=== PATIENT | female | born 1940 | race Caucasian/White ===

== ENCOUNTER 2016-12-26 11:26 | Inpatient (IN) ==
[2016-12-26] MEDS ORDERED: NS 500 ML IV ONE (11:27)
--- NOTE | 2016-12-26 11:59 | Diag Imaging Result Doc PS360 ---
EXAM: CHEST-PORTABLE INDICATION: dizzy TECHNIQUE: One view COMPARISON: 12/25/2016 FINDINGS: The lungs are hyperinflated, stable. Stable minimal linear scarring at the left lung base is unchanged. No new consolidations are appreciated. Cardiac silhouette is stable. IMPRESSION: Stable chest. Electronically signed by Kit Davis 12/26/2016 11:57 AM
--- NOTE | 2016-12-26 12:13 | EKG Report ---
Test Performed on : 12/26/2016 11:45:25 AM Test Reason : Chest Pain Blood Pressure : / mmHG Vent. Rate : 060 BPM Atrial Rate : 064 BPM P-R Int : 168 ms QRS Dur : 186 ms QT Int : 518 ms P-R-T Axes : 000 -71 075 degrees QTc Int : 518 ms AV dual-paced rhythm Abnormal ECG When compared with ECG of 03-APR-2016 06:06, No significant change was found Unconfirmed Result
[2016-12-26 12:21] LABS: MANUAL DIFF NEEDED? NO
[2016-12-26 12:24] LABS: BASO% 0.2 % (0.0-0.8); EOS# 0.13 X1000 (0.0-0.7); HEMATOCRIT 37.6 % (37.0-47.0); HEMOGLOBIN 12.2 g/dL (12.0-16.0); LYMPH# 0.93 X1000 (1.2-3.4); LYMPH% 21.3 % (20.5-51.1); MCHC 32.4 g/dL (33-37); MCV 95.7 FL (81-99); MONO# 0.26 X1000 (0.11-0.59); MPV 10.1 FL (7.4-10.4); NEUT% 69.5 % (42.2-75.2); PLT 150 X1000 (130-400); RBC 3.93 XMIL (4.2-5.4)
[2016-12-26 12:34] LABS: INR 1.04; PTT 26.1 Seconds (22.0-36.0)
[2016-12-26 12:44] LABS: ALBUMIN 3.9 g/dL (3.5-5.0); CALCIUM 9.3 mg/dL (8.8-10.2); MAGNESIUM 2.1 mg/dL (1.5-2.7); POTASSIUM 3.9 mmol/L (3.5-5.1); TOTAL BILIRUBIN 0.84 mg/dL (0.20-1.00); TOTAL PROTEIN 6.3 g/dL (6.3-8.3)
[2016-12-26 12:54] LABS: URINE MICRO REVIEW NEEDED? NO; URINE SOURCE CLEAN CATCH
[2016-12-26 12:57] LABS: BILIRUBIN URINE NEGATIVE (NEGATIVE); BLOOD URINE NEGATIVE (NEGATIVE); COLOR YELLOW; GLUCOSE URINE NEGATIVE (NEGATIVE); LEUKOCYTES URINE TRACE (NEGATIVE); NITRITE URINE NEGATIVE (NEGATIVE); PROTEIN URINE NEGATIVE (NEGATIVE); SP GRAVITY URINE 1.012; TURBIDITY URINE CLEAR (CLEAR); UROBILINOGEN URINE NORMAL (NORMAL)
[2016-12-26 12:58] LABS: UR EPITHELIAL CELLS <10 /HPF (<10); URINE BACTERIA NEGATIVE /HPF; URINE CULTURE NEEDED? YES; URINE RBC <10 /HPF (<10); URINE WBC <10 /HPF (<10)
--- NOTE | 2016-12-26 13:58 | Diag Imaging Result Doc PS360 ---
EXAM: ANGIOGRAM/PULMONARY ARTERIES INDICATION: presyncope elevated ddimer COMPARISON: 09/18/2011 FINDINGS: There is a filling defect involving second and higher order branches of the left pulmonary artery leading to the left lower lobe. This is consistent with acute pulmonary embolism. Clot burden is moderate. There is a focal density at the posterior lateral left lung base that is vaguely wedge-shaped. Although it is possible that this is simply atelectasis, it is certainly concerning for pulmonary infarct. There is only minimal dependent atelectasis on the right. There are no pleural fluid collections and no pneumothorax. The heart is enlarged. There is no evidence of significant lymphadenopathy. IMPRESSION: 1.Acute pulmonary embolism involving branches of the left pulmonary artery leading to the left lung base with a moderate clot burden. 2.Focal opacity at the left lung base concerning for pulmonary infarct. 3.Cardiomegaly. The findings were discussed with Darryn Olvera MD at 12/26/2016 1:54 PM. Electronically signed by Kit Davis 12/26/2016 1:56 PM
[2016-12-26] MEDS ORDERED: LOVENOX 1 MG/KG SUBQ ONE (14:08)
--- NOTE | 2016-12-26 14:20 | PROVIDER DOCUMENTATION ---
This chart was entered by Sofia Gao Scribe, acting as scribe for Darryn Olvera MD. HPI-Syncope/Dizziness - General Chief Complaint: Dizziness Stated Complaint: Near Syncope Time Seen by Provider: 12/26/16 11:28 Source: patient, EMS Allergies/Adverse Reactions: Patient Allergies Allergy/AdvReac Type Severity Reaction Status Date / Time Penicillins Allergy Intermediate RASH Verified 12/26/16 12:23 Home Medications: Home Medication List Medication Instructions Recorded Confirmed Last Taken Type Gabapentin Enacarbil 300 mg PO HS 12/26/12 12/26/16 12/25/16 20:00 History Isosorbide Mononitrate [Isosorbide 60 mg PO DAILY 12/26/12 12/26/16 04/02/16 History Mononitrate ER] Potassium Chloride [Klor-Con M10] 10 meq PO TID 12/26/12 12/26/16 12/25/16 12: 00 History Montelukast Sodium 10 mg PO DAILY 07/31/13 12/26/16 04/02/16 History Losartan/Hctz [Hyzaar 50/12.5 mg] 1 each PO DAILY #0 tablet 08/03/13 12/26/16 12:00 Rx Meloxicam [Mobic] 7.5 mg PO PRN PRN 04/02/16 12/26/16 Unknown History Memantine HCl [Namenda Xr] 28 mg PO DAILY 04/02/16 12/26/16 12/25/16 20:00 History Omeprazole [Prilosec] 20 mg PO DAILY@0700 04/02/16 12/26/16 12/25/16 20:00 History Ropinirole [Requip] 1 mg PO QHS 04/02/16 12/26/16 12/25/16 20:00 History Rosuvastatin Calcium [Crestor] 10 mg PO QPM 04/02/16 12/26/16 12/25/16 20:00 History Linaclotide [Linzess] 145 mcg PO DAILY #0 04/05/16 12/26/16 Unknown Rx Sertraline [Zoloft] 200 mg PO DAILY #0 tablet 04/05/16 12/26/16 12/25/16 20:00 Rx - History of Present Illness-Syncope/Dizzy Nature of Presenting Problem: 76 y/o F presents to ED cc of dizziness/ lightheadedness. Pt was brought in ED per EMS. Pt has history of these episodes. When this episode onset today pt was at [facility] and was sitting down when she became light headed. On EMS arrival to scene pt bp is 89/47. On arrival to ED pt bp was 121/57 after having some fluids. Pt denies having breakfast this am and on exam asked for some food. Pt denies any CP/SOB/N/V/D. Pt is alert and oriented x 3. Prior Episodes: reports: recent history Onset/Duration: reports: just prior to arrival Timing: reports: still present Symptoms prior to episode: reports: lightheaded. denies: headache, nausea/ vomiting, chest pain, racing heart, abdominal pain, back pain, confusion, diaphoresis, injury, recent head trauma, rapid heart beat Context: reports: felt faint, almost passed out. denies: lost consciousness, became unresponsive, collapsed, confused after event, incontinent of urine, incontinent of stool, breathing shallow, breathing stopped, lost pulse, seizure activity observed, low blood sugar Loss of Consciousness: no loss of consciousness Location of injury. (If syncope resulted in an injury.): reports: none Current Symptoms: reports: lightheaded, dizzy. denies: fever, chest pain, short of breath, abdominal pain, vomiting, shoulder pain, weakness, weak pulse, headache, blurred vision Similar symptoms previously: reports: workup for same problem Recently Seen Here or By Another Healthcare Provider: Yes - Dizziness Severity in ED: reports: mild Dizziness Related Current/Associated Symptoms: reports: lightheaded, dizzy. denies: weakness, weak pulse, unable to sit up, chronic dizziness Any recent trauma/injury?: reports: none Modifying Factors: improves with: nothing Patient usually:: reports: walks without assistance Review of Systems - Adult - REVIEW OF SYSTEMS - ADULT Constitutional: denies: chills, fever Eyes: denies: blurred vision, double vision Ears, Nose, Mouth & Throat: denies: ear pain, throat pain Cardiovascular: denies: chest pain, palpitations Respiratory: denies: cough, shortness of breath Gastrointestinal: denies: abdominal pain, diarrhea, nausea, vomiting Genitourinary: denies: dysuria, discharge, hematuria, hesitency Neurological: reports: dizziness/vertigo. denies: headache/migraines, seizure, slurred speech, syncope, tremors Psychiatric: denies: panic attacks, suicidal thoughts Endocrine: denies: change in skin pigment, excessive sweating Hematologic/Lymphatic: denies: blood clots, easy bruising Past History - Adult - PAST MEDICAL HISTORY-ADULT Review of Records: reports: Old Records Reviewed, Nursing Assessment Review Cardiovascular: reports: HTN, hyperlipidemia Respiratory: reports: COPD Gastrointestinal: reports: GERD Psychiatric: reports: depression - PRIOR SURGERIES/PROCEDURES Surgical/Procedure History: reports: cholecystectomy, hysterectomy, orthopedic ( extremity) - IMMUNIZATION STATUS Childhood Immunizations: See Nurse Assessment Flu Vaccine: See Nurse Assessment - FAMILY HISTORY Family History: reviewed, not pertinent - SOCIAL HISTORY Smoking: denies, non-smoker Substance Use: none/never, denies Physical Exam-General - PHYSICAL EXAM-ADULT Initial Vital Signs Reviewed: Yes - CONSTITUTIONAL General Appearance: appears well, alert, no apparent distress - EYES Eyes: pink conjunctivae - HEAD, EARS, NOSE, MOUTH & THROAT HENMT: moist mucous membranes, normal ENT inspection - NECK Neck: non-tender - RESPIRATORY Respiratory: chest non-tender, lungs clear, normal breath sounds - CARDIOVASCULAR Cardiovascular: normal peripheral pulses, regular rate, rhythm, no edema - GASTROINTESTINAL (ABDOMEN) Abdominal Exam: normal bowel sounds, non tender, soft - MUSCULOSKELETAL Back Exam: normal inspection, no CVA tenderness, no vertebral tenderness Extremity: normal range of motion, non-tender, normal gait - SKIN Integumentary: normal color, normal turgor, warm/dry - NEUROLOGIC Neurologic: grossly normal, no motor/sensory deficits - PSYCHIATRIC Psych/Mental Status: oriented x 3 Progress - PLAN OF CARE/RESULTS Progress/Plan/Lab Results: Vital Signs - 8 hr 12/26/16 11:28 12/26/16 12:25 12/26/16 12:33 Temperature 98.3 F Pulse Rate 64 60 Pulse Rate [Sitting] 61 Pulse Rate [Standing] 61 Pulse Rate [Supine] 60 Respiratory Rate 17 20 Blood Pressure 115/71 116/69 Blood Pressure [Sitting] 117/65 Blood Pressure [Standing] 129/67 Blood Pressure [Supine] 100/62 O2 Sat by Pulse Oximetry 94 L 97 12/26/16 13:59 Temperature Pulse Rate 60 Pulse Rate [Sitting] Pulse Rate [Standing] Pulse Rate [Supine] Respiratory Rate 17 Blood Pressure 114/72 Blood Pressure [Sitting] Blood Pressure [Standing] Blood Pressure [Supine] O2 Sat by Pulse Oximetry 98 Laboratory Results - last 24 hr 12/26/16 12/26/16 12/26/16 12:00 12:00 12:00 WBC 4.36 L RBC 3.93 L Hgb 12.2 Hct 37.6 MCV 95.7 MCH 31.0 MCHC 32.4 L RDW Std Deviation 13.0 Plt Count 150 MPV 10.1 Neut % (Auto) 69.5 Lymph % (Auto) 21.3 [place] % (Auto) 6.0 Eos % (Auto) 3.0 Baso % (Auto) 0.2 Neut # (Auto) 3.03 Lymph # (Auto) 0.93 L [place] # (Auto) 0.26 Eos # (Auto) 0.13 Baso # (Auto) 0.01 PT INR PTT (Actin FS) D-Dimer 2.26 H Sodium 143 Potassium 3.9 Chloride 102 Carbon Dioxide 27 Anion Gap 14 BUN 17 Creatinine 1.1 H Estimated GFR/1.73 m2 48 BUN/Creatinine Ratio 15 Glucose 121 H Calculated Osmolality 288 Calcium 9.3 Magnesium 2.1 Total Bilirubin 0.84 AST 17 ALT 9 L Alkaline Phosphatase 83 Creatine Kinase 45 Troponin T Sty-D-Hbzploythzn Pept Total Protein 6.3 Albumin 3.9 Globulin 2.4 Albumin/Globulin Ratio 1.6 Urine Source Urine Color Urine Turbidity Urine pH Ur Specific [place] Urine Protein Ur Glucose (Stick) Ur Ketones (Stick) Urine Blood Urine Nitrite Urine Bilirubin Urobilinogen Dipstick Urine Leukocytes Urine WBC (Auto) Urine RBC (Auto) U Epithel Cells (Auto) Urine Bacteria (Auto) 12/26/16 12/26/16 12/26/16 12:00 12:00 12:00 WBC RBC Hgb Hct MCV MCH MCHC RDW Std Deviation Plt Count MPV Neut % (Auto) Lymph % (Auto) [place] % (Auto) Eos % (Auto) Baso % (Auto) Neut # (Auto) Lymph # (Auto) [place] # (Auto) Eos # (Auto) Baso # (Auto) PT 11.0 INR 1.04 PTT (Actin FS) 26.1 D-Dimer Sodium Potassium Chloride Carbon Dioxide Anion Gap BUN Creatinine Estimated GFR/1.73 m2 BUN/Creatinine Ratio Glucose Calculated Osmolality Calcium Magnesium Total Bilirubin AST ALT Alkaline Phosphatase Creatine Kinase Troponin T < 0.010 Qyv-A-Lvfyzeoidkh Pept 762 H Total Protein Albumin Globulin Albumin/Globulin Ratio Urine Source Urine Color Urine Turbidity Urine pH Ur Specific [place] Urine Protein Ur Glucose (Stick) Ur Ketones (Stick) Urine Blood Urine Nitrite Urine Bilirubin Urobilinogen Dipstick Urine Leukocytes Urine WBC (Auto) Urine RBC (Auto) U Epithel Cells (Auto) Urine Bacteria (Auto) 12/26/16 12:41 WBC RBC Hgb Hct MCV MCH MCHC RDW Std Deviation Plt Count MPV Neut % (Auto) Lymph % (Auto) [place] % (Auto) Eos % (Auto) Baso % (Auto) Neut # (Auto) Lymph # (Auto) [place] # (Auto) Eos # (Auto) Baso # (Auto) PT INR PTT (Actin FS) D-Dimer Sodium Potassium Chloride Carbon Dioxide Anion Gap BUN Creatinine Estimated GFR/1.73 m2 BUN/Creatinine Ratio Glucose Calculated Osmolality Calcium Magnesium Total Bilirubin AST ALT Alkaline Phosphatase Creatine Kinase Troponin T Orq-C-Plnlytibgkg Pept Total Protein Albumin Globulin Albumin/Globulin Ratio Urine Source CLEAN CATCH Urine Color YELLOW Urine Turbidity CLEAR Urine pH 5.0 Ur Specific [place] 1.012 Urine Protein NEGATIVE Ur Glucose (Stick) NEGATIVE Ur Ketones (Stick) NEGATIVE Urine Blood NEGATIVE Urine Nitrite NEGATIVE Urine Bilirubin NEGATIVE Urobilinogen Dipstick NORMAL Urine Leukocytes TRACE A Urine WBC (Auto) <10 Urine RBC (Auto) <10 U Epithel Cells (Auto) <10 Urine Bacteria (Auto) NEGATIVE Orders Category Date Time Status Cardiac Monitoring DIRECTED Care 12/26/16 11:27 Active ED: Orthostatic Vital Signs (E as directed Care 12/26/16 11:27 Active Saline Loc NOW Care 12/26/16 11:27 Active Straight Catheterization ORDERED Care 12/26/16 12:45 Inactive Miscellaneous Diet Routine Diet 12/26/16 11:27 Active ANGIOGRAM/PULMONARY ARTERIES [CT] Stat Exams 12/26/16 13:12 Completed CHEST-PORTABLE [RAD] Stat Exams 12/26/16 11:27 Completed CBC WITH ELECTRONIC DIFF [HEME] Stat Lab 12/26/16 12:00 Completed CK PROFILE [SP CHEM] Stat Lab 12/26/16 12:00 Completed COMPREHENSIVE METABOLIC PANEL [CHEM] Stat Lab 12/26/16 12:00 Completed D-DIMER [CHEM] Stat Lab 12/26/16 12:00 Completed MAGNESIUM [CHEM] Stat Lab 12/26/16 12:00 Completed PRO B-NATRIURETIC PEPTIDE Stat Lab 12/26/16 12:00 Completed PROTIME WITH INR [COAG] Stat Lab 12/26/16 12:00 Completed PTT [COAG] Stat Lab 12/26/16 12:00 Completed TROPONIN T Stat Lab 12/26/16 12:00 Completed URINALYSIS W/POSS RFLX CULT [URINALYSIS] Stat Lab 12/26/16 12:41 Completed URINE CULTURE [RM] Routine Lab 12/26/16 13:01 Received 0.9% Sodium Chloride Inj [Ns] 500 ml Med 12/26/16 11:27 Discontinued IV 999 mls/hr Enoxaparin 1 mg/kg [Lovenox 1 mg/kg] Med 12/26/16 14:08 Discontinued 1 each SUBQ NOW ONE EKG [EKG] Stat Ther 12/26/16 11:27 Draft Transfer/Admit Order [TRANSFER] Routine Transfer 12/26/16 14:14 Ordered Result Diagrams: 12/26/16 12:00 12/26/16 12:00 - REASSESSMENT Reassessment #1 Time Reassessed: 13:30 Status: unchanged (pt daughter is at bedside. Pt was explained that will come back to room once CT was resulted.) - CT/MRI 1 CT Study: Angiogram Impression: Abnormal (1)acute pulmonary embolism involing branches of the left pulmonary artery leading to the left lung base with a moderate clot burden. 2) Focal opacity at the left lung base concerning for pulmonary infarct . 3) cardiomegaly -(radiolgist)) CT Results: see impression - CONSULTS/PCP/HOSPITALIST Notification #1 *Consult/PCP/Hospitalist*: ( radiolgist) Time Discussed: 13:54 Consult Disposition: other (results of CT scan) #2 Consult: Dr. Rees(PCP) Time Discussed: 14:06 Consult Disposition: Admit Departure - Departure Date of Disposition Decision: 12/26/16 Time of Disposition Decision: 13:58 DIAGNOSIS: Pulmonary infarct Pulmonary embolism Qualifiers: Pulmonary embolism type: other Chronicity: acute Acute cor pulmonale presence: without acute cor pulmonale Qualified Code(s): I26.99 - Other pulmonary embolism without acute cor pulmonale Disposition: ADMITTED INPATIENT 09 Certified Medical Emergency: Emergent Condition: Stable Referrals and Follow-Ups: None,PCP [Clinical Support] - - Critical Care Note This patient required my direct & personal management of CC.: Yes Total Time (mins): 32 Critical Care Statement: This patient required my direct personal management to treat or rule out processes, the absence of which, could potentiallly result in sudden, clinically significant life or limb threatening deterioration. This chart was documented by the indicated scribe, (Sofia Gao Scribe) and accurately reflects the services I performed and decisions made by me, Darryn Olvera MD, as attested by the provider's signature.
--- NOTE | 2016-12-26 14:20 | ED EKG INTERP ---
This chart was entered by Sofia Gao Scribe, acting as scribe for Darryn Olvera MD. EKG Interpretation - EKG Time of EKG reading by physician:: 11:45 EKG Read and Signed by:: Darryn Olvera EKG Interpretation (*Must complete 3 of following elements*): Abnormal Rate: 60 Rhythm: av dual-paced rhythm [place]: normal QRS: normal [place] Interval: normal ST Wave: normal This chart was documented by the indicated scribe, (Sofia Gao Scribe) and accurately reflects the services I performed and decisions made by Wade brock Tom-Meka M., MD, as attested by the provider's signature.
[2016-12-26] MEDS ORDERED: LOVENOX SUBQ ONE (14:56)
[2016-12-26] MEDS ORDERED: TYLENOL PO PRN (15:18)
[2016-12-26] MEDS ORDERED: MORPHINE IV PRN (15:18)
[2016-12-26] MEDS ORDERED: ZOFRAN IV PRN (15:18)
--- NOTE | 2016-12-26 17:58 | HISTORY AND PHYSICAL ---
76-year-old, white female patient admitted with syncope. The patient was in her usual state of health today. She was at the [facility] sitting in the chair watching TV. Patient claims she felt uneasy, dizzy, lightheaded and she had syncopal episode. EMS was called. The patient was brought to the emergency room. Evaluated by ER physician. Found to have pulmonary embolism and patient was admitted for further care. Her initial blood pressure at the [facility] was 89/42 and after 250 mL of fluid it went up to 121/57. I evaluated patient yesterday for bilateral ankle swelling. We did blood work and chest x-ray and it was benign. The patient denied any chest pain. She did have some palpitations today. She did feel dizzy. No calf pain. No history of trauma to her legs. No fever or chills. No unusual cough, expectoration, or hemoptysis. She denied any abdominal pain, nausea, vomiting. No diarrhea, blood, or mucus in the stool. No dysuria or hematuria. The patient denied any vaginal bleeding and spotting or discharge. No heat or cold intolerance. The patient does have dementia. No major weight loss or weight gain. The patient does have problem with depression. Does have problem with allergic rhinitis. No further history available at this time. ALLERGIES: Penicillin. HOME MEDICATION: Includes patient is on Neurontin. She was on Linzess. The patient was on Hyzaar before but which was discontinued after her previous syncopal episode. Mobic, Neurontin, Imdur, Namenda, Singulair, potassium, Requip, Crestor and Zoloft. PAST MEDICAL HISTORY: Significant for situational depression. Restless legs syndrome. Hyperlipidemia. Paroxysmal atrial fibrillation. Gastritis and reflux disease. Rhinitis. Coronary artery disease. History suggestive of peripheral neuropathy. Osteoarthritis. Constipation. Patient had history of cardiac arrest, syncope and cardiac arrhythmia. PERSONAL HISTORY: . Son lives with her. Nonsmoker. Denied alcohol or substance abuse. REVIEW OF SYSTEMS: As per HPI. FAMILY HISTORY: Noncontributory. PHYSICAL EXAMINATION: GENERAL: Elderly white female patient in no acute distress. VITAL SIGNS: Blood pressure 115/71, pulse 64, respirations 17, temperature 98.3 degrees. SKIN: Senile turgor. No rash or petechiae. HEENT: Head atraumatic, normocephalic. [place] conjunctivae. Anicteric sclerae. Extraocular muscle movement normal. Fundus cannot be penetrated. Good oral hygiene. No tonsillopharyngeal congestion or exudate. Ears and nose benign. NECK: Supple. No JVD, thyromegaly or lymphadenopathy. CHEST: Bilateral good air entry present. Few basal crepitations. No rales. CARDIOVASCULAR: S1 and S2 heard. No gallop or thrill. ABDOMEN: Soft. No distention. Bowel sounds present. EXTREMITIES: No cyanosis, clubbing. Minimal swelling around the ankle. No acute vascular compromise. No acute DVT. DIRT BIKE MECHANIC: Alert, awake. Able to move all 4 limbs. LAB DATA: Revealed hemoglobin 12.2, hematocrit 37.6, WBC count 4.36, platelet count 150,000. PT/INR 1.04, PTT 26.1. D-dimer was 2.6. We did CTA of the pulmonary artery which did reveal acute pulmonary embolism involving branch of the left pulmonary artery leading to the left lung base with moderate clot burden. Focal opacity at the left base concerning for pulmonary infarct Cardiomegaly. Patient did have chest x-ray done which revealed stable chest. Her electrolytes PT/INR 1.04. Electrolytes were fairly benign. ProBNP was 762. Urinalysis was benign. CONSIDERATION: Pulmonary embolism, syncope, hypertension, situational depression, dementia, osteoarthritis, rhinitis, restless legs syndrome, hyperlipidemia, history of coronary artery disease. I am going to admit the patient. We will start her on Eliquis, close observation. Continue home medicine. Overall plan discussed at length with the patient. I also called her son and they are in agreement. Overall prognosis fair to guarded. Family is aware of prognosis. cc: Ortega Rees MD
[2016-12-26] MEDS: REQUIP PO SCH (20:53)
[2016-12-26] MEDS: CRESTOR PO SCH (20:53)
[2016-12-26] MEDS: GABAPENTIN ENACARBIL 300 MG PO SCH (20:54)
[2016-12-27] MEDS: ELIQUIS PO SCH ×3 (01:48→20:51)
[2016-12-27] MEDS: PRILOSEC PO SCH (06:00)
--- NOTE | 2016-12-27 06:46 | PROGRESS NOTE ---
DATE: 12/27/2016 SUBJECTIVE: Ms. Garber is doing better. She was able to rest well. No chest pain or unusual shortness of breath. No fever or chills. Denied any dizziness. OBJECTIVE: Her vital signs as noted. Neck is supple. No JVD.Lungs: Bilateral good air entry present. CVS: S1 and S2 heard. Abdomen: Soft and globular. Bowel sounds present. Extremities: No cyanosis or clubbing. No edema. RIGGING MAN: Alert, awake, and able to move all 4 limbs. ASSESSMENT AND PLAN: The patient admitted with syncope and found to have pulmonary embolism with infarction. I started her on the Eliquis which we are going to continue 10 mg for 7 days and then we will change her to 5 mg twice a day. Her renal function is satisfactory. Other problems includes hyperlipidemia, Alzheimer's type dementia, osteoarthritis and restless legs syndrome. History of coronary artery disease. Overall patient is doing better. I am going to observe the patient today. If clinical condition permits, we will discharge the patient home tomorrow. I am going to change her oxygen as per protocol. cc: Ortega Rees MD
[2016-12-27] MEDS: NAMENDA XR PO SCH (08:35)
[2016-12-27] MEDS: KLOR-CON PO SCH ×3 (08:35→16:34)
[2016-12-27] MEDS: IMDUR PO SCH (08:36)
[2016-12-27] MEDS ORDERED: SINGULAIR PO SCH (09:00)
[2016-12-27] MEDS ORDERED: ZOLOFT PO SCH (09:00)
[2016-12-27] MEDS: REQUIP PO SCH (20:50)
[2016-12-27] MEDS: CRESTOR PO SCH (20:51)
[2016-12-27] MEDS: GABAPENTIN ENACARBIL 300 MG PO SCH (20:51)
[2016-12-28] MEDS: PRILOSEC PO SCH (06:19)
[2016-12-28] MEDS: ELIQUIS PO SCH ×2 (08:42→20:36)
[2016-12-28] MEDS: IMDUR PO SCH (08:42)
[2016-12-28] MEDS: NAMENDA XR PO SCH (08:42)
[2016-12-28] MEDS: KLOR-CON PO SCH ×3 (08:43→16:29)
--- NOTE | 2016-12-28 10:00 | Extremity Venous Study ---
PROCEDURE NAME: Venous U/S Bilateral Legs - 12/26/2016 BILATERAL LOWER EXTREMITY VENOUS STUDY: REQUESTING PHYSICIAN: Dr. Ortega Rees. CERTIFIED PERSONAL FINANCE COUNSELOR: Laci. INDICATIONS: PE finds sources. PROCEDURE: Bilateral lower extremity venous Duplex and Color flow imaging. EQUIPMENT.: [employer] E9 ultrasound System 9 LD transducer. Images of bilateral lower extremity venous system obtained in both sagittal and transverse planes. Doppler was used to evaluate veins for spontaneity, phasicity, respiratory excursion, and digital augmentation. RESULTS: Normal venous compression, normal venous flow. No obvious superficial or deep venous thrombosis noted. INTERPRETATION: No obvious superficial or deep venous thrombosis noted on this study. cc: MD Ortega Woodward MD
--- NOTE | 2016-12-28 12:42 | PROGRESS NOTE ---
DATE: 12/28/2016 Ms. Garber had CTA of the chest which revealed the presence of acute pulmonary embolism. She has cardiomegaly. She is feeling better however her blood pressure has shot up this morning. It is 166/105. I am going to put her on Lopressor 50 mg b.i.d., and amlodipine 5 mg now. I will continue to watch her closely. -1 cc: MD Ortega Triplett MD
[2016-12-28] MEDS: REQUIP PO SCH (20:36)
[2016-12-28] MEDS: CRESTOR PO SCH (20:36)
[2016-12-28] MEDS: LOPRESSOR PO SCH (20:36)
[2016-12-28] MEDS: GABAPENTIN ENACARBIL 300 MG PO SCH (20:36)
[2016-12-29] MEDS: PRILOSEC PO SCH (06:45)
[2016-12-29] MEDS: KLOR-CON PO SCH ×3 (09:01→16:45)
[2016-12-29] MEDS: NAMENDA XR PO SCH (09:01)
[2016-12-29] MEDS: IMDUR PO SCH (09:01)
[2016-12-29] MEDS: NORVASC PO SCH (09:01)
[2016-12-29] MEDS: LOPRESSOR PO SCH ×3 (09:01→23:03)
[2016-12-29] MEDS: ELIQUIS PO SCH ×3 (09:36→23:03)
--- NOTE | 2016-12-29 11:32 | PROGRESS NOTE ---
DATE: 12/29/2016 Ms. Garber is recovering from a pulmonary embolism. She is on Eliquis. The prescription has been written. However, I had to add Lopressor and Norvasc yesterday for her hypertension. Blood pressure is still fluctuating. I am going to wait until tomorrow to discharge her. Overall condition is otherwise stable. Lungs sound clear. -0 cc: MD Ortega Triplett MD
[2016-12-29] MEDS: REQUIP PO SCH ×2 (19:38→23:03)
[2016-12-29] MEDS: CRESTOR PO SCH ×2 (19:38→23:03)
[2016-12-29] MEDS: GABAPENTIN ENACARBIL 300 MG PO SCH ×2 (19:38→23:03)
[2016-12-30] MEDS: PRILOSEC PO SCH (06:35)
[2016-12-30 07:19] VITALS: BP 128/70
[2016-12-30] MEDS: IMDUR PO SCH (08:57)
[2016-12-30] MEDS: NORVASC PO SCH (08:57)
[2016-12-30] MEDS: ELIQUIS PO SCH (08:57)
[2016-12-30] MEDS: NAMENDA XR PO SCH (08:57)
[2016-12-30] MEDS: LOPRESSOR PO SCH (08:58)
[2016-12-30] MEDS: KLOR-CON PO SCH (08:58)
--- NOTE | 2016-12-31 06:55 | DISCHARGE SUMMARY ---
ADMISSION DATE: 12/26/2016 DISCHARGE DATE: 12/30/2016 FINAL DISCHARGE DIAGNOSES: 1. Pulmonary embolism. 2. Alzheimer's type dementia. 3. Hypertension. 4. Hyperlipidemia. 5. Restless legs syndrome. 6. Osteoarthritis. 7. History of cardiac arrest in the past. 8. Pulmonary infarction. 9. Gastritis and reflux disease. 10. Peripheral neuropathy. HISTORY AND HOSPITAL COURSE: Ms. Garber is a 76-year-old white female patient, admitted with syncope. Had some dizziness prior to this episode. The patient was at [facility]. She was brought to the emergency room, found to have elevated D-dimer. The patient underwent CTA of the pulmonary artery, which did reveal acute pulmonary embolism, with possible pulmonary infarction. The patient admitted, given Lovenox, then I started her on Eliquis. The patient was clinically stable. Plan was to discharge patient on Friday. She had an episode of elevated hypertension. Doctor on-call decided to start her on medicine and observe her. The patient is doing better. She denied any bleeding. No chest pain or palpitation. Tolerating food well. The patient is eager to go home. PHYSICAL EXAMINATION: Vital Signs: Her vital signs noted. Lungs: Clear. Heart: Regular. Abdomen: Soft, nontender. Bowel sounds present. Extremities: No cyanosis, clubbing. No acute DVT. Central Nervous System: Alert, awake, able to move all 4 limbs. LABORATORY DATA: Noted. D-dimer 2.26. Hemoglobin was 12.2, hematocrit 37.6, platelet count 150,000. WBC count 4.36. Urinalysis was benign. CTA of the pulmonary artery did reveal acute pulmonary embolism involving branches of the left pulmonary artery, leading to focal opacity at the left lung base, concerning for pulmonary infarct, and cardiomegaly. Chest x-ray did reveal possible atelectasis. Otherwise, stable chest. DISCHARGE PLAN: Overall, patient received maximum benefit of hospitalization. Discussed at length risk of anticoagulation, bleeding, and precaution. I also talked to her granddaughter on Friday, and today with her son, to bring all her medicine. Gave her a prescription for Lopressor and Eliquis, explained to them how to take it. Follow up with me in a week. In case of more distress, call us back or go to emergency room. cc: Ortega Rees MD
== END 2016-12-30 12:25 | disposition home or self-care (01) ==
LOC: ED 11:26 → 3S 14:29
PROVIDERS: ADMIT Internal Medicine; ATTEND Internal Medicine